=== PATIENT | male | born 1955 | race Caucasian/White ===

== ENCOUNTER 2024-11-19 17:45 | Emergency (ER) | payer MEDICARE ==
[2024-11-19] MEDS ORDERED: Sodium Chloride 0.9% 10 ML Syringe FLUSH PRN (19:26)
[2024-11-19] MEDS ORDERED: Naloxone 0.4 MG/ML SDV IVPUSH PRN (19:28)
[2024-11-19] MEDS: HYDROmorphone 0.5 MG/0.5 ML Syringe IVPUSH ONE (19:40)
[2024-11-19] MEDS: Sodium Chloride 0.9% 1,000 ML IV ONE ×2 (19:40→23:51)
[2024-11-19] MEDS: Ondansetron 4 MG/2 ML SDV IVPUSH ONE (19:40)
[2024-11-19 19:57] LABS: BASOPHILS PERCENT AUTO 0.4 % (0.0-1.0); EOSINOPHILS PERCENT AUTO 0.1 % (0.0-6.0); HEMATOCRIT 45.7 % (42.0-52.0); HEMOGLOBIN 15.4 gm/dl (14.0-18.0); IMMATURE GRAN ABSOLUTE AUTO 0.02 K/mm3 (0.00-0.05); IMMATURE GRAN PERCENT AUTO 0.3 % (0.0-0.4); LYMPHOCYTES PERCENT AUTO 15.3 % (24.0-44.0); MEAN CORPUSCULAR HEMOGLOBIN 30.6 pg (28.0-32.0); MEAN CORPUSCULAR HGB CONC 33.7 g/dl (32.0-36.0); MEAN CORPUSCULAR VOLUME 90.9 fl (83.0-99.0); MEAN PLATELET VOLUME 12.4 fl (9.4-12.4); MONOCYTES ABSOLUTE AUTO 0.8 K/mm3 (0.0-0.8); MONOCYTES PERCENT AUTO 11.7 % (0.0-8.0); NEUTROPHILS ABSOLUTE AUTO 4.9 K/mm3 (1.8-7.7); NEUTROPHILS PERCENT AUTO 72.2 % (41.0-71.0); PLATELET COUNT,PLT 167 K/mm3 (150-400); RED BLOOD CELL COUNT 5.03 M/mm3 (4.52-5.90); WHITE BLOOD CELL COUNT,WBC 6.74 K/mm3 (3.9-11.3)
[2024-11-19 20:28] LABS: LACTIC ACID 1.1 mmol/L (0.4-2.0)
[2024-11-19 20:36] LABS: A/G RATIO 0.9 (1-2); ALBUMIN 3.4 g/dl (3.4-5.0); ANION GAP 14.6 (5-15); BUN/CREATININE RATIO 14.5 (14-18); C-REACTIVE PROTEIN 1.44 mg/dL (<0.30); CALCIUM 8.7 mg/dL (8.5-10.1); CREATININE 1.1 mg/dL (0.7-1.3); EST CRCL DRUG DOSING (CG) 64.27 mL/min; POTASSIUM,K 3.6 mEq/L (3.5-5.1); PROTEIN TOTAL,TP 7.2 g/dl (6.4-8.2); TSH 1.386 uIU/mL (0.358-3.74)
[2024-11-19] MEDS: Ketorolac 30 MG/ML SDV IVPUSH ONE (21:49)
[2024-11-19] MEDS: diphenhydrAMINE 50 MG/ML SDV IVPUSH ONE (23:51)
[2024-11-19] MEDS: Dexamethasone 10 MG/ML SDV IVPUSH ONE (23:51)
== END 2024-11-20 00:29 | disposition home or self-care (01) ==
LOC: JD.ED 17:45
DX: J10.1 Influenza due to other identified influenza virus with other respiratory manifestations (principal); Z88.0 Allergy status to penicillin; Z88.2 Allergy status to sulfonamides; Z79.899 Other long term (current) drug therapy
CPT/HCPCS: 36415; 70450; 80053; 83605; 84443; 85025; 86140; 87040; 87428; 96361; 96374; 96375; 99284; J1100; J1200; J1885; J2405; J7030